=== PATIENT | female | born 1960 | race Caucasian/White ===

== ENCOUNTER 2017-03-19 21:27 | Emergency (ER) | payer MEDICAID, OTHER ==
[~2017-03-19] VITALS: Ht 180.3 cm; Wt 142.4 kg
[~2017-03-19 21:27] MED LIST: ALPR0.254 PO; AMOX1TAB10 PO; DIGO250T PO; DILT360C PO; DOXY100C2 PO; EDOX60TA PO; FERR-26 PO; FURO40TA4 PO; METO-269 PO; METO100T2 PO; METO25TA4 PO; PANT40TA3 PO
[2017-03-19 22:16] LABS: BASO # 0.1 x10^3/uL (0.0-0.2); BASO % 1 % (0-3); EOS % 4 % (0-3); HEMOGLOBIN 13.4 g/dL (12.0-15.5); LYMPH # 1.2 x10^3/uL (1.0-4.8); LYMPH % 10 % (24-48); MEAN CORPUSCULAR HEMOGLOBIN 28 pg (25-35); MEAN CORPUSCULAR HGB CONC 34 g/dL (31-37); MEAN CORPUSCULAR VOLUME 84 fL (79-100); MONO % 3 % (0-9); NEUT % 82 % (31-73); PLATELET COUNT 234 x10^3/uL (140-400); RED BLOOD COUNT 4.78 x10^6/uL (3.50-5.40); WHITE BLOOD COUNT 11.6 x10^3/uL (4.0-11.0)
[2017-03-19 22:23] LABS: CALCIUM 9.1 mg/dL (8.5-10.1); CREATININE 1.3 mg/dL (0.6-1.0); GFR 42.5; POTASSIUM 3.7 mmol/L (3.5-5.1)
[2017-03-19 22:29] LABS: ALBUMIN 3.3 g/dL (3.4-5.0); ALBUMIN/GLOBULIN RATIO 0.8 (1.0-1.7); TOTAL BILIRUBIN 0.3 mg/dL (0.2-1.0); TOTAL PROTEIN 7.2 g/dL (6.4-8.2)
[2017-03-19] MEDS ORDERED: IV NORMAL SALINE 1000ML BAG 1,000 ML IV SCH (22:30)
[2017-03-19] MEDS ORDERED: ASPIRIN CHEWABLE 81 MG TABLET. PO ONE (22:30)
--- NOTE | 2017-03-19 22:55 | PHYS DOC ---
Past Medical History Past Medical History: A-Fib, Cancer Additional Past Medical Histor: breast cancer- radiation Past Surgical History: Cholecystectomy Additional Past Surgical Histo: Left leg, carpal tunnel, bilat breast lumpectomy Alcohol Use: Rarely Drug Use: Marijuana Adult General Chief Complaint Chief Complaint: CHEST PAIN HPI HPI 56-year-old female with a history of atrial fibrillation compliant with her anticoagulant, patient of Dr. Estrada, now presents to the emergency department complaining of intermittent momentary stabbing chest pain. Patient states that today she had onset of this pain which is worse with deep inspiration. It intermittent and momentary. Patient has no productive cough or fever. She has no exertional chest pain. No nausea vomiting diaphoresis or shortness of air. Patient is not a smoker. She does have some hypertension and her other cardiac risk factor is a family history of coronary artery disease. Patient denies any exertional symptoms whatsoever. She has previously had a chemical stress test which was negative. Review of Systems Review of Systems Constitutional: Denies fever or chills [] Eyes: Denies change in visual acuity, redness, or eye pain [] HENT: Denies nasal congestion or sore throat [] Respiratory: Denies cough or shortness of breath [] Cardiovascular: No additional information not addressed in HPI [] GI: Denies abdominal pain, nausea, vomiting, bloody stools or diarrhea [] : Denies dysuria or hematuria [] Musculoskeletal: Denies back pain or joint pain [] Integument: Denies rash or skin lesions [] Neurologic: Denies headache, focal weakness or sensory changes [] Endocrine: Denies polyuria or polydipsia [] Current Medications Current Medications Current Medications Medications (Trade) Dose Ordered Sig/Brandy Start Time Stop Time Status Last Admin Dose Admin Acetaminophen/ Hydrocodone Bitart (Lortab 5/325) 1 tab 1X ONCE 03/19/17 23:30 03/19/17 23:31 DC 03/19/17 23:09 1 TAB Aspirin (Children'S Aspirin) 324 mg 1X ONCE 03/19/17 22:30 03/19/17 22:31 DC 03/19/17 22:19 324 MG Info (Do NOT chart on this entry -- for MONITORING) 1 each PRN DAILY PRN 03/19/17 23:15 03/21/17 23:14 Iohexol (Omnipaque 300 Mg/ml) 75 ml 1X ONCE 03/19/17 23:30 03/19/17 23:31 DC 03/19/17 23:39 75 ML Sodium Chloride 1,000 ml @ 100 mls/hr Q10H 03/19/17 22:30 03/20/17 08:29 03/19/17 22:19 100 MLS/HR Allergies Allergies Allergies Coded Allergies Type Severity Reaction Last Updated Verified No Known Drug Allergies 03/19/16 No Physical Exam Physical Exam Well-appearing 56-year-old female no acute distress clear lungs irregularly irregular rhythm with no tachycardia. Nontender chest wall no skin changes or crepitus Constitutional: Well developed, well nourished, no acute distress, non-toxic appearance. [] HENT: Normocephalic, atraumatic, bilateral external ears normal, oropharynx moist, no oral exudates, nose normal. [] Eyes: PERRLA, EOMI, conjunctiva normal, no discharge. [] Neck: Normal range of motion, no tenderness, supple, no stridor. [] Cardiovascular:Heart rate regular rhythm, no murmur [] Lungs & Thorax: Bilateral breath sounds clear to auscultation [] Abdomen: Bowel sounds normal, soft, no tenderness, no masses, no pulsatile masses. [] Skin: Warm, dry, no erythema, no rash. [] Back: No tenderness, no CVA tenderness. [] Extremities: No tenderness, no cyanosis, no clubbing, ROM intact, no edema. [] Neurologic: Alert and oriented X 3, normal motor function, normal sensory function, no focal deficits noted. [] Psychologic: Affect normal, judgement normal, mood normal. [] Current Patient Data Vital Signs Vital Signs Date Time Temp Pulse Resp B/P (MAP) Pulse Ox O2 Delivery O2 Flow Rate FiO2 03/19/17 22:00 90 14 158/72 (100) 97 Room Air 03/19/17 21:36 98.7 98.7 Lab Values Laboratory Tests Test 03/19/17 21:43 White Blood Count 11.6 x10^3/uL (4.0-11.0) H Red Blood Count 4.78 x10^6/uL (3.50-5.40) Hemoglobin 13.4 g/dL (12.0-15.5) Hematocrit 40.0 % (36.0-47.0) Mean Corpuscular Volume 84 fL (79-100) Mean Corpuscular Hemoglobin 28 pg (25-35) Mean Corpuscular Hemoglobin Concent 34 g/dL (31-37) Red Cell Distribution Width 17.0 % (11.5-14.5) H Platelet Count 234 x10^3/uL (140-400) Neutrophils (%) (Auto) 82 % (31-73) H Lymphocytes (%) (Auto) 10 % (24-48) L Monocytes (%) (Auto) 3 % (0-9) Eosinophils (%) (Auto) 4 % (0-3) H Basophils (%) (Auto) 1 % (0-3) Neutrophils # (Auto) 9.5 x10^3uL (1.8-7.7) H Lymphocytes # (Auto) 1.2 x10^3/uL (1.0-4.8) Monocytes # (Auto) 0.3 x10^3/uL (0.0-1.1) Eosinophils # (Auto) 0.5 x10^3/uL (0.0-0.7) Basophils # (Auto) 0.1 x10^3/uL (0.0-0.2) Sodium Level 140 mmol/L (136-145) Potassium Level 3.7 mmol/L (3.5-5.1) Chloride Level 104 mmol/L (98-107) Carbon Dioxide Level 28 mmol/L (21-32) Anion Gap 8 (6-14) Blood Urea Nitrogen 25 mg/dL (7-20) H Creatinine 1.3 mg/dL (0.6-1.0) H Estimated GFR (Cockcroft-Gault) 42.5 BUN/Creatinine Ratio 19 (6-20) Glucose Level 177 mg/dL (70-99) H Calcium Level 9.1 mg/dL (8.5-10.1) Total Bilirubin 0.3 mg/dL (0.2-1.0) Aspartate Amino Transferase (AST) 17 U/L (15-37) Alanine Aminotransferase (ALT) 25 U/L (14-59) Alkaline Phosphatase 68 U/L (46-116) Troponin I Quantitative < 0.017 ng/mL (0.000-0.055) Total Protein 7.2 g/dL (6.4-8.2) Albumin 3.3 g/dL (3.4-5.0) L Albumin/Globulin Ratio 0.8 (1.0-1.7) L Laboratory Tests 03/19/17 21:43 Laboratory Tests 03/19/17 21:43 EKG EKG [] Radiology/Procedures Radiology/Procedures [] Course & Med Decision Making Course & Med Decision Making Pertinent Labs and Imaging studies reviewed. (See chart for details) Signs and symptoms consistent with pleuritic pain in a patient with a prior negative stress test under the care of a complementary health therapists for her atrial fibrillation with which she is compliant. Clinical history not consistent with acute coronary syndrome. Chest x-ray unremarkable. Labs negative. CTA of the chest done to rule out less likely possibility of PE given patient's compliance with anticoagulant. CT was unremarkable. Case discussed with patient's complementary health therapists Dr. Sher He is aware of history and findings and agrees with outpatient follow-up. Patient is comfortable well-appearing and agrees with the plan. She is were to follow up with him as an outpatient and strict return precautions given. [] Dragon Disclaimer Dragon Disclaimer This electronic medical record was generated, in whole or in part, using a voice recognition dictation system. Departure Departure Impression: Primary Impression: Pleurisy Additional Impression: Chest pain Disposition: 01 HOME, SELF-CARE Referrals: UNKNOWN PCP NAME (PCP) Additional Instructions: Your symptoms today are consistent with pleurisy. This refers to sharp pain which typically is a result of irritation of the lung lining. A full workup today including EKG chest x-ray and CT angiography of your chest were all unremarkable. Take ibuprofen 800 mg every 6 hours and Tylenol as well as needed for pain. Follow-up with your doctor tomorrow as well as your complementary health therapists as soon as possible. Return immediately for new severe or worsening symptoms Problem Qualifiers SYLVIA ORTEGA MD Mar 19, 2017 22:55
[2017-03-19] MEDS ORDERED: CONTRAST GIVEN MC PRN (23:15)
[2017-03-19] MEDS ORDERED: IOHEXOL 300 MG/ML 75 ML VIAL IV ONE (23:30)
[2017-03-19] MEDS ORDERED: HYDROcodone/APAP 5/325MG 1 TAB TABLET PO ONE (23:30)
--- NOTE | 2017-03-20 00:04 | RAD ---
CT CHEST WITH CONTRAST, PULMONARY ANGIOGRAM History: Pleuritic chest pain, evaluate for pulmonary embolus. Comparison: None. Technique: Helical CT of the chest was performed after the administration of 60 cc of Omni 300 intravenous contrast according to PE protocol. Axial and coronal reconstructions were obtained. 3-D MIP images were constructed to better evaluate the pulmonary arteries. RS compliance statement: One or more of the following individualized dose reduction techniques were utilized for this examination: 1. Automated exposure control 2. Adjustment of the mA and/or kV according to patient size 3. Use of iterative reconstruction technique Findings: The pulmonary arteries appear adequately opacified without filling defect to suggest pulmonary embolus within the main, lobar or proximal segmental arteries. Distalmost segmental and subsegmental arteries are not well evaluated. Heart appears mildly enlarged, without pericardial effusion. Thoracic aorta is normal in caliber. Mild coronary artery calcification is present. No significant mediastinal or hilar lymphadenopathy is seen. No focal consolidation, pleural effusion or pneumothorax is seen. Minimal atelectasis is seen within the right middle lobe. Central airways remain patent. Overlying soft tissues and visualized osseous structures demonstrate no acute or suspicious finding. Coarse appearing calcifications are seen within both breasts. Visualized upper abdomen demonstrates no acute process. There is thickening of both visualized adrenal glands. IMPRESSION: No CT evidence of pulmonary embolus or other acute cardiopulmonary process. Electronically signed by: Rita Higuera MD (03/20/2017 12:00 AM) [place] [id number]
[2017-03-20 00:30] VITALS: BP 158/82
--- NOTE | 2017-03-20 06:46 | EKG ---
[facility] [address] [place] [address] Test Date: 2017-03-19 Test Time: 21:31:09 Pat Name: DEISI CAMARENA Department: Room: Gender: F Inventory Control Analyst: : 1960 Requested By: SYLVIA ORTEGA Order Number: [id number] Reading MD: Measurements Intervals [address] Rate: 105 P: [place]: QRS: 18 QRSD: 86 T: 72 QT: 338 QTc: 451 Interpretive Statements ATRIAL FIB./FLUTTER WITH RAPID VENTRICULAR RESPONSE QRS(T) CONTOUR ABNORMALITY CONSIDER ANTEROLATERAL MYOCARDIAL DAMAGE T ABNORMALITY IN INFERIOR LEADS RI6.01 Unconfirmed report No previous ECG available for comparison
--- NOTE | 2017-03-20 07:37 | RAD ---
Exam performed: One view chest. Indication: medical workup, history of atrial fibrillation, chest pain Date of Service: 03/20/2017 12:05 AM Comparison: Single view chest from 04/25/16. Single AP upright portable view chest findings: Cardiomediastinal silhouette is within upper limits of normal. Pulmonary vascularity is unremarkable. Mildly prominent bilateral interstitial markings are seen which appear chronic No acute infiltrates, effusion or pneumothorax is detected. The bony structures are normal. Impression: Borderline cardiomegaly No acute pulmonary findings detected.
== END 2017-03-20 00:58 | disposition home or self-care (01) ==
LOC: ER 21:27
DX: R09.1 Pleurisy (principal); R07.89 Other chest pain; I48.91 Unspecified atrial fibrillation; I10 Essential (primary) hypertension; Z90.49 Acquired absence of other specified parts of digestive tract
CPT/HCPCS: 36415; 71010; 71275; 80053; 84484; 85025; 93005; 96360; 96361; 99285; J7030; Q9967

== ENCOUNTER 2017-05-24 06:34 | Outpatient (CLI) | payer OTHER ==
[~2017-05-24] VITALS: Ht 180.3 cm; Wt 142.9 kg
[2017-05-24] VITALS (13 sets, daily range): BP systolic 135–165; BP diastolic 51–97
[2017-05-24] MEDS ORDERED: IV 1/2 NORMAL SALINE 1,000 ML IV SCH (06:47)
[2017-05-24] MEDS ORDERED: IODIXANOL 320 MG/ML 100 ML VIAL. ONE (07:12)
[2017-05-24] MEDS ORDERED: LIDOCAINE 2% 20 ML VIAL. ONE (07:12)
[2017-05-24] MEDS ORDERED: HEPARIN for ARTERIAL LINE 1,500 ML ONE (07:13)
[2017-05-24 07:14] LABS: HEMATOCRIT 38.4 % (36.0-47.0); HEMOGLOBIN 12.7 g/dL (12.0-15.5); RED BLOOD COUNT 4.57 x10^6/uL (3.50-5.40); RED CELL DISTRIBUTION WIDTH 16.7 % (11.5-14.5); WHITE BLOOD COUNT 10.8 x10^3/uL (4.0-11.0)
[2017-05-24 07:30] LABS: PROTHROMBIN TIME PATIENT 12.6 SEC (11.7-14.0)
[2017-05-24 07:31] LABS: GFR 57.6; POTASSIUM 4.1 mmol/L (3.5-5.1)
[2017-05-24] MEDS ORDERED: METO100T2 PO (07:39)
[2017-05-24] MEDS ORDERED: LISI10TA2 PO (07:39)
[2017-05-24] MEDS ORDERED: TAMO20TA PO (07:39)
[2017-05-24] MEDS ORDERED: RIVA20TA2 PO (07:39)
[2017-05-24] MEDS ORDERED: LORA1TAB PO (07:39)
[2017-05-24] MEDS ORDERED: FURO80TA3 PO (07:39)
[2017-05-24] MEDS ORDERED: HEPARIN for IV BOLUS 10,000 UNIT/10 ML VIAL. ONE (08:19)
[2017-05-24] MEDS ORDERED: MIDAZOLAM HCL/PF 2 MG/2 ML VIAL. ONE ×2 (08:19→09:04)
[2017-05-24] MEDS ORDERED: NITROGLYCERIN 200 MCG/2 ML SYRINGE FOR CATH/VASC LAB. ONE ×2 (08:19→10:49)
[2017-05-24] MEDS ORDERED: fentaNYL PF VIAL 100 MCG/2 ML VIAL ONE ×2 (08:19→09:04)
[2017-05-24] MEDS ORDERED: VERAPAMIL 5 MG/2 ML VIAL. ONE (08:19)
--- NOTE | 2017-05-24 08:44 | PDOC ---
MODERATE SEDATION ASSESSMENT RISKS/ALTERNATIVES Risks/Alternatives Risks and alternatives of this type of sedation and procedure discussed with: RISK/ALTERNATIVES: Patient H & P ON CHART H & P H & P on chart and reviewed for co-morbid conditions and appropriate labs. H&P ON CHART: Yes STATUS PREG STATUS ASSESSED: N/A MEDS/ALLERGIES REVIEWED Meds/Allergies Reviewed Medications and Allergies including time and route of recently administered narcotics and sedatives. MEDS/ALLERGIES REVIEWED: Yes ASA RATING ASA RATING: II AIRWAY ASSESSMENT Airway Assessment Airway patency, oral function limitations, presence of caps, crowns, dentures, partials, and ability to extend neck assessed. AIRWAY ASSESSMENT: Yes MALLAMPATI SCORE MALLAMPATI SCORE: III PRE-SEDATION ASSESSMENT PRE-SEDATION ASSESSMENT: Yes BONNIE JOSEPH MD May 24, 2017 08:44
[2017-05-24] MEDS ORDERED: LIDOCAINE 2% 20 ML VIAL. IJ ONE (09:00)
[2017-05-24] MEDS ORDERED: MIDAZOLAM HCL/PF 2 MG/2 ML VIAL. IV ONE ×2 (09:00→09:30)
[2017-05-24] MEDS ORDERED: fentaNYL PF VIAL 100 MCG/2 ML VIAL IV ONE ×2 (09:00→09:30)
[2017-05-24] MEDS ORDERED: IODIXANOL 320 MG/ML 100 ML VIAL. IART ONE (09:00)
[2017-05-24] MEDS ORDERED: NITROGLYCERIN 200 MCG/2 ML SYRINGE FOR CATH/VASC LAB. IART ONE ×2 (09:00→09:15)
[2017-05-24] MEDS ORDERED: HEPARIN for IV BOLUS 10,000 UNIT/10 ML VIAL. IART ONE (09:00)
[2017-05-24] MEDS ORDERED: VERAPAMIL 5 MG/2 ML VIAL. IART ONE (09:00)
[2017-05-24] MEDS ORDERED: CONTRAST GIVEN MC PRN (09:15)
--- NOTE | 2017-05-24 09:25 | CARD ---
APPROVED REPORT Procedure(s) performed: SEDATION TIME: 32 MINUTES Coronary angiography HISTORY The patient is a 56 year-old female with a history of : diabetes mellitus with treatment, hypertensio n, dyslipidemia. INDICATION The indication(s) include : positive stress test, dyspnea. CASE TECHNIQUE During this case, Fluoroscopy and low osmolar contrast were used for imaging. PROCEDURE NARRATIVE The patient was brought electively to the cardiac catheterization lab. A timeout was performed confi rming the patient's name, date of , procedure, and site of procedure. All necessary personnel w ere wearing the appropriate protective equipment and radiation monitor devices. After explaining the risks and benefits of the procedure and alternatives, informed consent was obtained. (See nursing no janeen for medications administered). The right wrist was sterilely prepped and draped in the usual fas hion. The right wrist was infiltrated with 1 mL of 2% lidocaine for subcutaneous anesthesia. A 6 Fr ench Terumo glide sheath was inserted into the right radial artery without difficulty. Right and lef t coronary angiography was performed using a 6Fr TIG 4.0 catheter. All catheter exchanges and advanc ements were performed over a guidewire. At case completion the right radial sheath was removed and a Terumo radial band was applied with 13 ml of air. The patient tolerated the procedure well and ther e were no immediate complications. HEMODYNAMICS: AO: 156/78 LEFT VENTRICULOGRAM: Deferred due to known normal EF. CORONARY ANGIOGRAPHY: LM is a large caliber vessel with normal angiographic appearance. LAD is a large caliber vessel with a proximal 20-30% stenosis. D1 is a moderate caliber vessel with normal angiographic apeparance. LCx is a moderate caliber non-dominant vessel with normal angiographic appearance. OM1 is a moderate caliber vessel with normal angiographic appearance. RCA is a large caliber dominant vessel with normal angiographic appearance. RPDA and RPL are moderate caliber vessels with normal angiographic appearance. Conclusion 1. Mild non-obstructive coronary disease. Recommendations Aggressive Medical Therapy
== END 2017-05-24 12:31 | disposition home or self-care (01) ==
LOC: CCL 06:34
PROVIDERS: ATTEND Internal Medicine Cardiovascular Disease
DX: I25.10 Atherosclerotic heart disease of native coronary artery without angina pectoris (principal); E11.9 Type 2 diabetes mellitus without complications; E78.5 Hyperlipidemia, unspecified; I11.0 Hypertensive heart disease with heart failure; I50.9 Heart failure, unspecified; I48.91 Unspecified atrial fibrillation; Z90.49 Acquired absence of other specified parts of digestive tract; Z86.69 Personal history of other diseases of the nervous system and sense organs; Z88.6 Allergy status to analgesic agent; Z88.8 Allergy status to other drugs, medicaments and biological substances
CPT/HCPCS: 36415; 80048; 85027; 85610; 93454; 99152; 99153; C1769; C1892; J1644; J2250; J3010; J3490; Q9967; J2001

== ENCOUNTER → 2018-11-25 | Outpatient (CLI) | payer MEDICAID, OTHER ==
[2017-05-24 11:57] VITALS: BP 150/77
[~2018-11-25] MED LIST changes: -FERR-26 PO; +FERR325T14 PO; +FURO80TA3 PO; +LISI10TA2 PO; +LORA1TAB PO; -METO100T2 PO; +METO100T7 PO; +RIVA20TA2 PO; +TAMO20TA PO
--- NOTE | 2018-11-25 13:07 | CARD ---
MR#: [id number] Date of Study: 11/25/2018 Ordering Physician: BONNIE JOSEPH, Referring Physician: BONNIE JOSEPH, Tech: Cindi Jameson ALLI APPROVED REPORT EXAM: Two-dimensional and M-mode echocardiogram with Doppler and color Doppler. Other Information Quality : Good Rhythm : Atrial Fibrillation INDICATION Chest Pain 2D DIMENSIONS RVDd3.5 (2.9-3.5cm)Left Atrium(2D)4.3 (1.6-4.0cm) IVSd0.8 (0.7-1.1cm)Aortic Root(2D)2.8 (2.0-3.7cm) LVDd5.5 (3.9-5.9cm)LVOT Diameter2.4 (1.8-2.4cm) PWd0.8 (0.7-1.1cm)LVDs3.0 (2.5-4.0cm) FS (%) 30.0 %SV115.9 ml LVEF(%)60.0 (>50%) Aortic Valve AoV Peak Barry.171.1cm/sAoV VTI30.5cm AO Peak GR.11.7mmHgLVOT Peak Barry.127.1cm/s LVOT VTI 25.02cmAO Mean GR.6mmHg DARYA (VMAX)3.90us7PZB (VTI)3.64cm2 Mitral Valve MV E Ixaxihpp744.4cm/sMV DECEL XOQY958ec MV NOZ82klYCR (PHT)3.45cm2 TDI E/Lateral E'7.6E/Medial E'9.5 Tricuspid Valve TR P. Lmldbluj885dy/sRAP HHMEXPCM5tfQi TR Peak Gr.01vdXmKKUN13ehYh Pulmonary Vein S1 Dosdxjbz66.5cm/sD2 Qsrpsmfu60.8cm/s LEFT VENTRICLE The left ventricle is normal size. There is normal left ventricular wall thickness. The left ventricu lar systolic function is normal and the ejection fraction is within normal range. The Ejection Fracti on is 55-60%. There is normal LV segmental wall motion. RIGHT VENTRICLE The right ventricle is normal size. The right ventricular systolic function is normal. ATRIA The left atrium is mildly dilated. The right atrium size is normal. The interatrial septum is intact with no evidence for an atrial septal defect or patent foramen ovale as noted on 2-D or Doppler imagi ng. AORTIC VALVE The aortic valve is calcified but opens well. Doppler and Color Flow revealed no significant aortic r egurgitation. There is no significant aortic valvular stenosis. MITRAL VALVE The mitral valve is normal in structure and function. There is no evidence of mitral valve prolapse. There is no mitral valve stenosis. Doppler and Color-flow revealed trace to mild mitral regurgitation . TRICUSPID VALVE The tricuspid valve is normal in structure and function. Doppler and Color Flow revealed trace tricus pid regurgitation. The PA pressure was estimated at 20 mmHg. There is no tricuspid valve stenosis. PULMONIC VALVE The pulmonic valve is not well visualized. Doppler and Color Flow revealed trace pulmonic valvular re gurgitation. There is no pulmonic valvular stenosis. GREAT VESSELS The aortic root is normal in size. The ascending aorta is not well seen. The IVC is normal in size an d collapses >50% with inspiration. PERICARDIAL EFFUSION There is no evidence of significant pericardial effusion. Critical Notification Critical Value: No <Conclusion> The left ventricle is normal size. The left ventricular systolic function is normal and the ejection fraction is within normal range. The Ejection Fraction is 55-60%. There is no significant aortic valvular stenosis. Doppler and Color Flow revealed no significant aortic regurgitation. Doppler and Color-flow revealed trace to mild mitral regurgitation. Doppler and Color Flow revealed trace tricuspid regurgitation. The PA pressure was estimated at 20 mmHg. Signed by : Lewis Syed MD Electronically Approved : 11/25/2018 13:07:07
== END | disposition home or self-care (01) ==
LOC: ECHO 08:11
PROVIDERS: ATTEND Internal Medicine Cardiovascular Disease
DX: I08.0 Rheumatic disorders of both mitral and aortic valves (principal); I48.91 Unspecified atrial fibrillation
CPT/HCPCS: 93306

== ENCOUNTER → 2020-04-12 | Outpatient (CLI) | payer OTHER ==
[2017-05-24 11:57] VITALS: BP 150/77
[~2020-04-12] MED LIST changes: -DIGO250T PO; +DIGO250T3 PO; -EDOX60TA PO; +EDOX60TA2 PO; -PANT40TA3 PO; +PANT40TA77 PO
--- NOTE | 2020-04-12 16:17 | CARD ---
MR#: [id number] Date of Study: 04/12/2020 Ordering Physician: BONNIE JOSEPH, Referring Physician: BONNIE JOSEPH, Tech: Rita Chakraborty APPROVED REPORT EXAM: Two-dimensional and M-mode echocardiogram with Doppler and color Doppler. Other Information Quality : AverageHR: 81bpm INDICATION Congestive Heart Failure 2D DIMENSIONS RVDd3.4 (2.9-3.5cm)Left Atrium(2D)4.0 (1.6-4.0cm) IVSd1.0 (0.7-1.1cm)Aortic Root(2D)3.0 (2.0-3.7cm) LVDd5.1 (3.9-5.9cm)LVOT Diameter2.0 (1.8-2.4cm) PWd1.0 (0.7-1.1cm)LVDs3.2 (2.5-4.0cm) FS (%) 37.7 %SV82.2 ml LVEF(%)67.6 (>50%) Aortic Valve AoV Peak Barry.120.8cm/sAoV VTI25.5cm AO Peak GR.5.8mmHgLVOT Peak Barry.71.4cm/s LVOT VTI 16.38cmAO Mean GR.4mmHg DARYA (VMAX)1.71id0DVU (VTI)1.96cm2 Mitral Valve MV E Peak Gr.85mmHgMV E Mean Gr.3mmHg Pulmonary Valve PV Peak Ounrgwhn20.0cm/sPV Peak Grad.4mmHg Tricuspid Valve TR P. Vxyhahli374ss/sRAP BJKTGXTV0rwNd TR Peak Gr.35xiEqLVAM52amFj LEFT VENTRICLE The left ventricle is normal size. There is normal left ventricular wall thickness. The left ventricu lar systolic function is normal. The Ejection Fraction is 55-60%. There is normal LV segmental wall m otion. Diastology indeterminate due to atrial fibrillation. RIGHT VENTRICLE The right ventricle is normal size. There is normal right ventricular wall thickness. The right ventr icular systolic function is normal. ATRIA The left atrium is mild to moderately dilated. The right atrium size is normal. The interatrial septu m is intact with no evidence for an atrial septal defect or patent foramen ovale as noted on 2-D or D oppler imaging. AORTIC VALVE The aortic valve is normal in structure and function. Doppler and Color Flow revealed no significant aortic regurgitation. Calculated aortic valve area is 2.26 cm2 with maximum pressure gradient of 6 mm Hg and mean pressure gradient of 4 mmHg. There is no significant aortic valvular stenosis. MITRAL VALVE The mitral valve is normal in structure and function. There is no evidence of mitral valve prolapse. There is no mitral valve stenosis. Doppler and Color-flow revealed mild mitral regurgitation. TRICUSPID VALVE The tricuspid valve is normal in structure and function. Doppler and Color Flow revealed trace tricus pid regurgitation with an estimated PAP of 30 mmHg. There is no tricuspid valve stenosis. PULMONIC VALVE The pulmonic valve is not well visualized. Doppler and Color Flow revealed no pulmonic valvular regur gitation. GREAT VESSELS The aortic root is normal in size. The ascending aorta is normal in size. The IVC is normal in size a nd collapses >50% with inspiration. PERICARDIAL EFFUSION There is no evidence of significant pericardial effusion. Critical Notification Critical Value: No <Conclusion> The left ventricular systolic function is normal. The Ejection Fraction is 55-60%. There is normal LV segmental wall motion. Mild mitral regurgitation. Trace tricuspid regurgitation with an estimated PAP of 30 mmHg. There is no evidence of significant pericardial effusion. Signed by : Hernan Mayen, Electronically Approved : 04/12/2020 16:17:19
== END | disposition home or self-care (01) ==
LOC: ECHO 10:17
PROVIDERS: ATTEND Internal Medicine Cardiovascular Disease
DX: I34.0 Nonrheumatic mitral (valve) insufficiency (principal); I50.30 Unspecified diastolic (congestive) heart failure
CPT/HCPCS: 93306

== ENCOUNTER → 2021-10-25 | Outpatient (CLI) | payer OTHER ==
[2017-05-24 11:57] VITALS: BP 150/77
[~2021-10-25] MED LIST changes: -DOXY100C2 PO; +DOXY100C3 PO; +LISI10TA16 PO; -LISI10TA2 PO
--- NOTE | 2021-10-25 16:47 | CARD ---
MR#: [id number] Date of Study: 10/25/2021 Ordering Physician: BONNIE JOSEPH, Referring Physician: BONNIE JOSEPH, Tech: Iliana Avila [facility] APPROVED REPORT EXAM: Two-dimensional and M-mode echocardiogram with Doppler and color Doppler. Other Information Quality : AverageHR: 87bpm Rhythm : Atrial Fibrillation INDICATION Atrial Fibrillation RISK FACTORS Hypertension Obesity Hyperlipidemia Diabetes 2D DIMENSIONS Left Atrium(2D)5.2 (1.6-4.0cm)IVSd1.4 (0.7-1.1cm) Aortic Root(2D)3.1 (2.0-3.7cm)LVDd5.2 (3.9-5.9cm) LVOT Diameter2.4 (1.8-2.4cm)PWd1.3 (0.7-1.1cm) IVSs1.7 (0.8-1.2cm)LVDs3.7 (2.5-4.0cm) FS (%) 30.0 %PWs1.8 (0.8-1.2cm) SV74.2 mlLVEF(%)56.8 (>50%) Aortic Valve AoV Peak Barry.128.2cm/sAoV VTI21.1cm AO Peak GR.6.6mmHgLVOT Peak Barry.67.8cm/s LVOT VTI 12.45cmAO Mean GR.4mmHg DARYA (VMAX)1.46xr6DRU (VTI)2.77cm2 Pulmonary Valve PV Peak Fhnxshpt697.2cm/sPV Peak Grad.6mmHg Tricuspid Valve TR P. Frblcjzf654af/sTR Peak Gr.25mmHg LEFT VENTRICLE The left ventricle is normal size. There is mild concentric left ventricular hypertrophy. The left ve ntricular systolic function is normal and the ejection fraction is within normal range. Estimated eje ction fraction 50-55%. There is normal LV segmental wall motion. The left ventricular diastolic funct ion and filling is normal for age. No left ventricle thrombus noted on this study. RIGHT VENTRICLE The right ventricle is normal size. There is normal right ventricular wall thickness. The right ventr icular systolic function is normal. ATRIA The left atrium is moderately dilated. The right atrium is mildly dilated. The interatrial septum is intact with no evidence for an atrial septal defect or patent foramen ovale as noted on 2-D or Dopple r imaging. AORTIC VALVE The aortic valve is normal in structure and function. Doppler and Color Flow revealed no significant aortic regurgitation. There is no significant aortic valvular stenosis. MITRAL VALVE The mitral valve is normal in structure and function. There is no evidence of mitral valve prolapse. There is no mitral valve stenosis. Doppler and Color-flow revealed mild mitral regurgitation. TRICUSPID VALVE The tricuspid valve is normal in structure and function. Doppler and Color Flow revealed trace tricus pid regurgitation. Estimated PAP 30 mmHg. There is no tricuspid valve stenosis. PULMONIC VALVE Doppler and Color Flow revealed no pulmonic valvular regurgitation. There is no pulmonic valvular chandana nosis. GREAT VESSELS The aortic root is normal in size. The ascending aorta is normal in size. The IVC is normal in size a nd collapses >50% with inspiration. PERICARDIAL EFFUSION There is no evidence of significant pericardial effusion. Critical Notification Critical Value: No <Conclusion> The left ventricular systolic function is normal and the ejection fraction is within normal range. E stimated ejection fraction 50-55%. There is normal LV segmental wall motion. Signed by : Bonnie Joseph, Electronically Approved : 10/25/2021 16:47:18
== END ==
LOC: ECHO 10:56
PROVIDERS: ATTEND Internal Medicine Cardiovascular Disease
DX: I34.0 Nonrheumatic mitral (valve) insufficiency (principal); I51.7 Cardiomegaly; I50.30 Unspecified diastolic (congestive) heart failure
CPT/HCPCS: 93306; C8929